=== PATIENT | female | born 1980 | race Caucasian/White ===

== ENCOUNTER → 2017-11-22 15:43 | Outpatient (CLI) | payer OTHER, SELFPAY ==
[2017-11-27 09:48] LABS: HPV Reflexed? NOT INDICATED
== END ==
PROVIDERS: Visit Provider Obstetrics & Gynecology
DX: Z12.4 Encounter for screening for malignant neoplasm of cervix (principal)
CPT/HCPCS: 88175; G0145

== ENCOUNTER → 2020-03-01 14:36 | Outpatient (CLI) | payer OTHER, SELFPAY ==
[2020-03-04 22:06] LABS: HPV Reflexed? NOT INDICATED
== END ==
PROVIDERS: Visit Provider Obstetrics & Gynecology
DX: Z12.4 Encounter for screening for malignant neoplasm of cervix (principal)
CPT/HCPCS: 88175; G0145

== ENCOUNTER 2021-07-06 11:04 | Outpatient (CLI) | payer OTHER, SELFPAY ==
--- NOTE | 2021-07-06 11:06 | BI_ITS ---
MAMMOGRAPHY - BILATERAL SCREENING REASON FOR EXAM: Female, 41 years old. Routine annual screening examination. PERTINENT HISTORY: Non-contributory. TECHNIQUE: Digital bilateral breast yudith (3D mammographic acquisition) in the CC and MLO projections. 2-D mediolateral oblique (MLO) and craniocaudad (CC) views of both breasts were obtained. CAD: Full Field Digital Mammography with Computer Added Detection was performed. COMPARISON: None. Baseline examination. FINDINGS: Breast Composition: The breasts are heterogeneously dense, which may obscure small masses. There are no dominant masses or suspicious calcifications. Small benign-appearing bilateral axillary lymph nodes. No other significant abnormalities are identified. BI/SCRN MAMM (CAD)W/YUDITH BILAT IMPRESSION: Negative screening mammogram. Yearly followup mammogram recommended. (A) ASSESSMENT CATEGORY: BIRADS Category 2: Benign. A letter regarding these results will be sent to the patient by the facility within 30 days. Approximately 10% of breast cancers are not detected by mammography. A normal mammogram should not delay biopsy of a clinically suspicious abnormality. [id number] Electronically Signed: Young Dukes MD at 13:05 EDT ,
== END 2021-07-06 23:59 | disposition home or self-care (01) ==
LOC: OPBI 11:04
PROVIDERS: Visit Provider Obstetrics & Gynecology
DX: Z12.31 Encounter for screening mammogram for malignant neoplasm of breast (principal)
CPT/HCPCS: 77063; 77067

== ENCOUNTER → 2022-12-22 | Outpatient (CLI) | payer OTHER, SELFPAY ==
--- NOTE | 2022-12-22 14:46 | BI_ITS ---
MAMMOGRAPHY - BILATERAL SCREENING REASON FOR EXAM: Female, 42 years old. Routine annual screening examination. PERTINENT HISTORY: Non-contributory. TECHNIQUE: Digital bilateral breast yudith (3D mammographic acquisition) in the CC and MLO projections. 2-D mediolateral oblique (MLO) and craniocaudad (CC) views of both breasts were obtained. CAD: Full Field Digital Mammography with Computer Added Detection was performed. COMPARISON: Comparison is made with prior study dated July 06, 2021. FINDINGS: Breast Composition: The breasts are heterogeneously dense, which may obscure small masses. There are no dominant masses or suspicious calcifications. Stable small benign-appearing bilateral axillary lymph nodes. No other significant abnormalities are identified. There has been no significant change since the prior study. BI/SCRN MAMM (CAD)W/YUDITH BILAT IMPRESSION: Stable bilateral screening mammogram. Yearly follow-up mammogram recommended. (A) ASSESSMENT CATEGORY: BIRADS Category 2: Benign. A letter regarding these results will be sent to the patient by the facility within 30 days. Approximately 10% of breast cancers are not detected by mammography. A normal mammogram should not delay biopsy of a clinically suspicious abnormality. [id number] Electronically Signed: Young Dukes MD at 8:36 EDT ,
== END | disposition home or self-care (01) ==
LOC: OPBI 14:45
PROVIDERS: PCP Internal Medicine; Referring Provider Internal Medicine; Visit Provider Internal Medicine
DX: Z12.31 Encounter for screening mammogram for malignant neoplasm of breast (principal)
CPT/HCPCS: 77063; 77067

== ENCOUNTER → 2024-01-17 | Outpatient (CLI) | payer OTHER, SELFPAY ==
[2024-01-17 12:26] LABS: Absolute Lymphocyte Count 0.79 X10^3/uL (0.83-4.51); Absolute Neutrophil Count 2.9 X10^3/uL (2.0-7.7); Basophil# 0.03 X10^3/uL; Basophil% 0.7 % (0-1); Eosinophil# 0.16 X10^3/uL; Eosinophils% 3.7 % (0-5); Hematocrit 41.1 % (37-47); Hemoglobin 13.4 g/dL (12.0-15.0); Lymphocyte # 0.79 X10^3/ul (0.83-4.51); Mean Corp Hgb Conc 32.6 g/dL (32-36); Mean Corpuscular Hgb 29.5 pg (27.0-32.0); Mean Corpuscular Volume 90.3 fL (81-99); Mean Platelet Vol. 9.9 fl (6.2-12.0); Monocyte# 0.47 X10^3/uL; Monocyte% 10.7 % (0-10); NRBC Flagged by Analyzer 0 % (0-5); Neutrophil # 2.91 X10^3/uL (2.7-7.7); Neutrophil % 66.4 % (47-70); Platelet Count 225 K/mm3 (150-450); RBC Distribution Width CV 11.9 % (11.6-14.6); RBC Distribution Width SD 39.5 fl (35.1-43.9); Red Blood Count 4.55 M/mm3 (4.2-5.4); White Blood Count 4.4 K/mm3 (4.4-11.0)
[2024-01-17 12:56] LABS: ALB/GLOB Ratio 1.1 RATIO (0.9-2.4); AST(SGOT) 19 U/L (15-37); Alanine Aminotransfer ALT/SGPT 21 U/L (13-56); Albumin, Serum 3.7 g/dL (3.2-5.0); Alkaline Phosphatase 64 U/L (45-117); Anion Gap 5 (5-15); BUN 10 mg/dL (7-18); BUN/Creat Ratio 14.5 RATIO (10-20); Chloride 106 mmol/L (98-107); Cholesterol 200 mg/dL (200); Creatinine, Serum 0.69 mg/dL (0.55-1.02); EST Glomerular Filtration Rate 98 mL/min (>60); Est Glom Filt Rate - Afr Amer 119 mL/min (>60); Globulin 3.5 g/dL (2.2-4.2); Glucose 96 mg/dL (74-106); High Density Lipoprotein 97 mg/dL; Potassium 4.3 mmol/L (3.5-5.1); Protein, Total 7.2 g/dL (6.4-8.2); Sodium Level 139 mmol/L (136-145); Triglycerides 67 mg/dL; Very Low Density Lipoprotein 13 mg/dL (5-40)
== END | disposition home or self-care (01) ==
LOC: BIMLAB 09:25
PROVIDERS: PCP Internal Medicine; Referring Provider Internal Medicine; Visit Provider Internal Medicine
DX: Z00.00 Encounter for general adult medical examination without abnormal findings (principal); Z13.6 Encounter for screening for cardiovascular disorders; Z83.49 Family history of other endocrine, nutritional and metabolic diseases
CPT/HCPCS: 36415; 80053; 80061; 84443; 85025

== ENCOUNTER → 2024-02-12 | Outpatient (CLI) | payer OTHER, SELFPAY ==
--- NOTE | 2024-02-12 11:54 | BI_ITS ---
MAMMOGRAPHY - BILATERAL SCREENING REASON FOR EXAM: Female, 43 years old. Routine annual screening examination. PERTINENT HISTORY: Non-contributory. TECHNIQUE: Digital bilateral breast yudith (3D mammographic acquisition) in the CC and MLO projections. 2-D mediolateral oblique (MLO) and craniocaudad (CC) views of both breasts were obtained. CAD: Full Field Digital Mammography with Computer Added Detection was performed. COMPARISON: Comparison is made with prior study December 22, 2022 and July 06, 2021. FINDINGS: Breast Composition: The breasts are heterogeneously dense, which may obscure small masses. There are no dominant masses or suspicious calcifications. Stable small benign appearing bilateral axillary lymph nodes. No other significant abnormalities are identified. There has been no significant change since the prior study. BI/SCRN MAMM (CAD)W/YUDITH BILAT IMPRESSION: Stable bilateral screening mammogram. Yearly follow-up mammogram recommended. (A) ASSESSMENT CATEGORY: BIRADS Category 2: Benign. A letter regarding these results will be sent to the patient by the facility within 30 days. Approximately 10% of breast cancers are not detected by mammography. A normal mammogram should not delay biopsy of a clinically suspicious abnormality. [id number] Electronically Signed: Young Dukes MD at 13:42 EST ,
== END | disposition home or self-care (01) ==
LOC: OPBI 11:53
PROVIDERS: PCP Internal Medicine; Referring Provider Internal Medicine; Visit Provider Internal Medicine
DX: Z12.31 Encounter for screening mammogram for malignant neoplasm of breast (principal)
CPT/HCPCS: 77063; 77067

== ENCOUNTER → 2025-02-17 | Outpatient (CLI) | payer OTHER, SELFPAY ==
[2025-02-17 12:22] LABS: Hematocrit 40.5 % (37-47); Hemoglobin 13.9 g/dL (12.0-15.0); Immature Granulocytes Count 0.020 X10^3/uL (0.0-0.0); Mean Corp Hgb Conc 34.3 g/dL (32-36); Mean Corpuscular Volume 89.4 fL (81-99); Mean Platelet Vol. 9.8 fl (6.2-12.0); NRBC Flagged by Analyzer 0 % (0-5); Platelet Count 224 K/mm3 (150-450); RBC Distribution Width CV 12.4 % (11.6-14.6); RBC Distribution Width SD 40.1 fl (35.1-43.9); Red Blood Count 4.53 M/mm3 (4.2-5.4); White Blood Count 7.0 K/mm3 (4.4-11.0)
[2025-02-17 12:59] LABS: AST(SGOT) 29 U/L (<=31); Alanine Aminotransfer ALT/SGPT 25 U/L (<=34); Albumin, Serum 4.4 g/dL (3.5-5.0); Alkaline Phosphatase 58 U/L (35-104); Anion Gap 12 (5-15); BUN 13 mg/dL (4-19); BUN/Creat Ratio 21.6 RATIO (10-20); Calcium,Total 9.3 mg/dL (7.6-11.0); Carbon Dioxide 22.3 mmol/L (21.0-32.0); Chloride 103 mmol/L (98-108); Globulin 2.9 g/dL (2.2-4.2); Glucose 91 mg/dL (70-99); Potassium 4.3 mmol/L (3.3-5.1)
[2025-02-19 13:08] LABS: HPV APTIMA, High Risk Negative (Negative)
== END | disposition home or self-care (01) ==
LOC: MTLAB 09:43
PROVIDERS: PCP Internal Medicine; Referring Provider Internal Medicine; Visit Provider Internal Medicine
DX: Z00.00 Encounter for general adult medical examination without abnormal findings (principal); Z83.49 Family history of other endocrine, nutritional and metabolic diseases; Z13.1 Encounter for screening for diabetes mellitus; Z12.4 Encounter for screening for malignant neoplasm of cervix
CPT/HCPCS: 36415; 80053; 83036; 84443; 85025; 87624; 88175; G0145

== ENCOUNTER → 2025-03-17 | Outpatient (CLI) | payer OTHER, SELFPAY ==
--- NOTE | 2025-03-17 16:15 | BI_ITS ---
EXAM: SCRN MAMM (CAD)W/YUDITH BILAT DATE: 03/17/2025 CLINICAL HISTORY: F, Age 44 y/o , BREAST CANCER SCREENING No family history. TECHNIQUE: Procedure Code: [id number] Modality: MG Procedure: SCRN MAMM (CAD)W/YUDITH BILAT COMPARISON: Prior exam(s) dated February 12, 2024.. FINDINGS: TISSUE DENSITY: The breasts are heterogeneously dense, which may obscure small masses. Bilateral Breast Mammographic Findings: I suspect a 1.2 cm 1.4 cm nodular density in the deep upper lateral aspect of the right breast. Compression spot views and 90 degree lateral view recommended for further evaluation. Ultrasound may be necessary as well. BI/SCRN MAMM (CAD)W/YUDITH BILAT IMPRESSION: Questionable 1.2 cm 1.4 cm nodular density in the deep upper lateral aspect of the right breast as described. The patient will be recalled for additional views. Ultrasound may be necessary for further foll ow-up as well. OVERALL FINAL ASSESSMENT BI-RADS 0: INCOMPLETE - NEED ADDITIONAL IMAGING EVALUATION. RECOMMENDATION: Additional Views obtained/call backs Additional Recommendation none A letter with findings and recommendations will be mailed to the patient. Reading Location: [id number]
--- OUTSIDE RECORDS SUMMARY | 2025-03-17 20:35 | XMS RPT_ITS | CCD ---
Author Organization [facility] Care Team Providers Care Legal Assistant Name Role Phone Almont, Sunday Unavailable Unavailable Almont, Sunday Unavailable Unavailable Mildred Wolfe Unavailable Unavailable Itasca, Nataliia Attending Unavailable Itasca, Nataliia Referring Unavailable Itasca, Nataliia Primary Care Unavailable Hemanth, Nataliia Attending Unavailable [place]asca, Nataliia Referring Unavailable Hemanth, Nataliia Primary Care Unavailable Hemanth, Nataliia Attending Unavailable Hemanth, Nataliia Referring Unavailable Hemanth, Nataliia Primary Care Unavailable Allergies Allergy Classification Reported Allergen(s) Allergy Type Date of Onset Reaction(s) Facility (1 source) No Known Medication Allergies; Translations: [No Known Medication Allergies] Propensity to adverse reactions to drug (disorder) [facility] Repository Problems Problem Classification Problem Date Documented Da te Episodic/Chronic Immunizations and screening for infectious disease (1 source) Encounter for immunization; Translations: [Encounter for immunization] Onset: 01-23-2024 Episodic Other screening for suspected conditions (not mental disorders or infectious disease) (2 sources) Encounter for screening mammogram for malignant neoplasm of breast; Translations: [Encounter for other screening for malignant neoplasm of breast] Onset: 01-23-2024 Episodic Results Test Name Value Interpretation Reference Range Facility SCRN MAMM (CAD)W/YUDITH BILNeida n 02-12-2024 SCRN MAMM (CAD)W/YUDITH [facility] Imaging Services [address] [place] [address] SCRN MAMM (CAD)W/YUDITH BILAT MR#: [id number] Acct: [id number] Name: SOFY WANG Rep #: [id number] : 1980 F 43 From: Young caldera MD PCP: Dr. Nataliia Saxena MD Status: REG [facility] Study: SCRN MAMM (CAD)W/YUDITH BILAT Date of Exam: 01/31 05/26 Exam# [id number] Ordering [place]: [place] [id number] MAMMOGRAPHY - BILATERAL SCREENING REASON FOR EXAM: Female, 43 years old. Routine annual screening examination. PERTINENT HISTORY: Non-contributory. TECHNIQUE: Digital bilateral breast yudith (3D mammographic acquisition) in the CC and MLO projections. 2-D mediolateral oblique (MLO) and craniocaudad (CC) views of both breasts were obtained. CAD: Full Field Digital Mammography with Computer Added Detection was performed. COMPARISON: Comparison is made with prior study December 22, 2022 and July 06, 2021. FINDINGS: Breast Composition: The breasts are heterogeneously dense, which may obscure small masses. There are no dominant masses or suspicious calcifications. Stable small benign appearing bilateral axillary lymph nodes. No other significant abnormalities are identified. There has been no significant change since the prior study. BI/SCRN MAMM (CAD)W/YUDITH BILAT IMPRESSION: Stable bilateral screening mammogram. Yearly follow-up mammogram recommended. (A) ASSESSMENT CATEGORY: BIRADS Category 2: Benign. A letter regarding these results will be sent to the patient by the facility within 30 days. Approximately 10% of breast cancers are not detected by mammography. A normal mammogram should not delay biopsy of a clinically suspicious abnormality. [id number] Electronically Signed: Young Dukes MD at 13:42 EST , CC: Dr. Nataliia Saxena MD Corn Chip Maker: Signed Normal [facility] Internal Medicine Office Vis millernatalia 01-22-2024 Internal Medicine Office Visit [facility] [address] [place] [address] OFFICE VISIT Date of Service: 01/23/24 MR#: [id number] Acct: [id number] Name: SOFY WANG Rep #: [id number] : 1980 Provider: Dr. Nataliia lemus MD Age/Sex: 43/F Location: [facility] Status: Signed Intake Vital Signs 12/07/22 08:04 01/23/24 07:57 Height 5 ft 4 in 5 ft 4 in Weight: 160 lb BMI 27.4 BP 136/80 H Blood Pressure Location Lt brachial Position Sitting Respiration 16 Pulse 80 Pulse Source Monitor Temp 97.0 F L Temp Source Temporal Pulse Oximetry (%) 99 Oxygen Delivery Method room air Intake Visit Reasons: YEARLY Chief Complaint: yearly Keno Attendant Required: No Accompanied by: Self Is patient in pain?: No Allergies No Known Allergies Allergy (Unverified 01/23/24 07:56) Medications ???Medication ???Instructions ???Recorded ???Confirmed ???Type Lactobacillus rhamnosus GG 10 1 cap PO DAILY 12/07/22 01/23/24 History billion cell capsule (Culturelle) PFSH Medical History Asthma Hypertension Surgical History delivery delivered Family History Mother CVA (cerebral vascular accident) Graves disease Father Kidney disease Heart disease Hypertension Sister Blood clot in vein Social History (Updated 01/23/24 @ 08:[address] Nataliia Saxena MD) adopted: No household members: spouse and children number of children: 3 current occupational status: employed current occupation: [employer] pets and animals: Yes pets and animals: cat(s) and dog(s) Smoking Status: Former smoker quit date: 04/02/99 pack-years: 2 Tobacco: How many years used: 2 Electronic Cigarette Use: with nicotine how long ago did patient quit smoking: over 20 years ago quit status: has quit before alcohol intake: current alcohol intake frequency: a few times a week substance use type: does not use caffeine: Yes (2-3) Type: coffee frequency: 3-4 times per week seatbelt use: always do you feel safe at home: Yes HPI HPI Chief Complaint: yearly Details: SOFY WANG, is a 43 F who presents to the office today for a well visit. She is due for some routine blood work and screening. She does want her flu shot today. She doesn't smoke and doesn't take any medications. She has no questions or concerns at this time. Allergies: NKDA Medications reviewed: Yes Sofy likes to exercises by doing yoga and cardio. They watch their diet for sodium, low fat, and low cholesterol some of the time. List of current specialists seen: None End of life planning discussed including patient's advanced directive wishes: Discussed, patient has one in place I am willing to follow Sofy's advanced directives PHQ-2/Depression screen They in the past two weeks denies having felt down, depressed, hopeless or with little interest or pleasure in doing things. Hearing evaluation: Normal ROS Const Constitutional: Positive for weight change (11 pound weight gain); No body ache, chills, excessive sweating, fatigue, fever(s), frequent falls, headache(s), snoring, weakness or change in appetite Eyes Eyes: No blurry vision, change in vision, eye pain or Light sensitivity ENT ENT: Positive for nasal congestion (allergies); No abnormal hearing, ear or mastoid pain, tinnitus, headache(s), neck pain or sore throat Resp Respiratory: No cough, shortness of breath, snoring or wheezing Cardio Cardiology: No chest pain at rest, chest pain with exertion, excessive sweating, dyspnea on exertion, lightheadedness, orthopnea or palpitations Gastro GI: No abdominal pain, change in bowel habits, constipation, cramping, diarrhea, nausea/dyspepsia or vomiting Genitourinary-Female: No difficulty urinating, burning urination, painful urination, urinary incontinence, urinary frequency or abnormal periods Musc Musculoskeletal: No abnormal gait, joint pain, back pain, limited range of motion, muscle weakness, neck pain, numbness or tingling Skin Skin: No dry skin, redness, lesions, itchy eyes, rash or wounds Neuro Neurology: No abnormal gait, abnormal hearing, dizziness, weakness, frequent falls, headache(s), memory loss, numbness, tingling or fainting Psych Psychiatric: No anxiety, No change in appetite, No depression, No memory loss and No Thoughts of harming yourself/Others Endo Endocrine: Positive for weight change (11 pound weight gain); No cold intolerance, excessive sweating, fatigue, flushing, heat intolerance, increased thirst/drinking or increased hunger Aller/Imm Allergy/Immunologic: No itchy eyes, seasonal allergy symptoms, hives or wheezing Timothy/Ly (more content not included)... Normal [facility] CBC W/Diff, Automatedon 12-31 Absolute Lymph 0.79 X10 3/uL Low 0.83-4.51 [facility] Comment on above: Performed By: #### L 500.4050, L500.4100, L100.0100, L501.9520 #### [facility] [address] [place], [address] Absolute Neut 2.9 X10 3/uL Normal 2.0-7.7 [facility] Comment on above: Performed By: #### L 500.4050, L500.4100, L100.0100, L501.9520 #### [facility] [address] [place], [address] Basophils/100 WBC (Bld) 0.7 % Normal 0-1 [facility] Comment on above: Performed By: #### L 500.4050, L500.4100, L100.0100, L501.9520 #### [facility] [address] [place], [address] Eosinophils/100 WBC (Bld) 3.7 % Normal 0-5 [facility] Comment on above: Performed By: #### L 500.4050, L500.4100, L100.0100, L501.9520 #### [facility] [address] [place], [address] Erythrocyte distribution width (RBC) [Ratio] 11.9 % Normal 11.6-14.6 [facility] Comment on above: Performed By: #### L 500.4050, L500.4100, L100.0100, L501.9520 #### [facility] [address] [place], [address] Hematocrit (Bld) [Volume fraction] 41.1 % Normal 37-47 [facility] Comment on above: Performed By: #### L 500.4050, L500.4100, L100.0100, L501.9520 #### [facility] [address] [place], [address] Hemoglobin (Bld) [Mass/Vol] 13.4 g/dL Normal 12.0-15.0 [facility] Comment on above: Performed By: #### L 500.4050, L500.4100, L100.0100, L501.9520 #### [facility] [address] [place], [address] IG% 0.500 Normal 0.0-0.9 [facility] Comment on above: Result Comment: IG% - Immature Granulocytes (promyelocytes, myelocytes and metamyelocytes) > 1% indicates that a LEFT SHIFT is Present. Performed By: #### L 500.4050, L500.4100, L100.0100, L501.9520 #### [facility] [address] [place], [address] Lymphocytes/100 WBC (Bld) 18.0 % Low 19-41 [facility] Comment on above: Performed By: #### L 500.4050, L500.4100, L100.0100, L501.9520 #### [facility] [address] [place], [address] MCH (RBC) [Entitic mass] 29.5 pg Normal 27.0-32.0 [facility] Comment on above: Performed By: #### L 500.4050, L500.4100, L100.0100, L501.9520 #### [facility] [address] [place], [address] MCHC (RBC) [Mass/Vol] 32.6 g/dL Normal 32-36 [facility] Comment on above: Performed By: #### L 500.4050, L500.4100, L100.0100, L501.9520 #### [facility] [address] [place], [address] MCV (RBC) [Entitic vol] 90.3 fL Normal 81-99 [facility] Comment on above: Performed By: #### L 500.4050, L500.4100, L100.0100, L501.9520 #### [facility] [address] [place], [address] Monocytes/100 WBC (Bld) 10.7 % High 0-10 [facility] Comment on above: Performed By: #### L 500.4050, L500.4100, L100.0100, L501.9520 #### [facility] [address] [place], [address] Neutrophils/100 WBC (Bld) 66.4 % Normal 47-70 [facility] Comment on above: Performed By: #### L 500.4050, L500.4100, L100.0100, L501.9520 #### [facility] [address] [place], [address] Nucleated RBC (Bld) [#/Vol] 0 10*3/uL Normal 0-5 [facility] Comment on above: Performed By: #### L 500.4050, L500.4100, L100.0100, L501.9520 #### [facility] [address] [place], [address] Platelet mean volume (Bld) [Entitic vol] 9.9 fL Normal 6.2-12.0 [facility] Comment on above: Performed By: #### L 500.4050, L500.4100, L100.0100, L501.9520 #### [facility] [address] [place], [address] Platelets (Bld) [#/Vol] 225 10*3/uL Normal 150-450 [facility] Comment on above: Performed By: #### L 500.4050, L500.4100, L100.0100, L501.9520 #### [facility] [address] [place], [address] RBC (Bld) [#/Vol] 4.55 10*6/uL Normal 4.2-5.4 [facility] Comment on above: Performed By: #### L 500.4050, L500.4100, L100.0100, L501.9520 #### [facility] [address] [place], [address] RDW SD 39.5 fl Normal 35.1-43.9 [facility] Comment on above: Performed By: #### L 500.4050, L500.4100, L100.0100, L501.9520 #### [facility] [address] [place], [address] WBC (Bld) [#/Vol] 4.4 10*3/uL Normal 4.4-11.0 [facility] Comment on above: Performed By: #### L 500.4050, L500.4100, L100.0100, L501.9520 #### [facility] [address] [place], [address] Comprehensive Metabolic Prof ilolinda 01-17-2024 Albumin [Mass/Vol] 3.7 g/dL Normal 3.2-5.0 [facility] Comment on above: Performed By: #### L 500.4050, L500.4100, L100.0100, L501.9520 #### [facility] [address] [place], [address] Albumin/Globulin [Mass ratio] 1.1 {ratio} Normal 0.9-2.4 [facility] Comment on above: Performed By: #### L 500.4050, L500.4100, L100.0100, L501.9520 #### [facility] [address] [place], [address] ALK P 64 U/L Normal 45-117 [facility] Comment on above: Performed By: #### L 500.4050, L500.4100, L100.0100, L501.9520 #### [facility] [address] [place], [address] ALT [Catalytic activity/Vol] 21 U/L Normal 13-56 [facility] Comment on above: Performed By: #### L 500.4050, L500.4100, L100.0100, L501.9520 #### [facility] [address] [place], [address] AST [Catalytic activity/Vol] 19 U/L Normal 15-37 [facility] Comment on above: Performed By: #### L 500.4050, L500.4100, L100.0100, L501.9520 #### [facility] [address] [place], [address] Bilirubin [Mass/Vol] 0.60 mg/dL Normal 0.20-1.00 [facility] Comment on above: Result Comment: For patients on eltrombopag therapy, use of Dim[place] TBIL is not recommended. Performed By: #### L 500.4050, L500.4100, L100.0100, L501.9520 #### [facility] [address] [place], [address] BUN/CRE 14.5 RATIO Normal 10-20 [facility] Comment on above: Performed By: #### L 500.4050, L500.4100, L100.0100, L501.9520 #### [facility] [address] [place], [address] CA,Total 9.0 mg/dL Normal 8.5-10.1 [facility] Comment on above: Performed By: #### L 500.4050, L500.4100, L100.0100, L501.9520 #### [facility] [address] [place], [address] Chloride [Moles/Vol] 106 mmol/L Normal 98-107 [facility] Comment on above: Performed By: #### L 500.4050, L500.4100, L100.0100, L501.9520 #### [facility] [address] [place], [address] CO2 [Moles/Vol] 27.0 mmol/L Normal 21.0-32.0 [facility] Comment on above: Performed By: #### L 500.4050, L500.4100, L100.0100, L501.9520 #### [facility] [address] [place], [address] Creatinine [Mass/Vol] 0.69 mg/dL Normal 0.55-1.02 [facility] Comment on above: Result Comment: The validity of the calculated GFR GFRAA in patients over 70 years has not been determined. Clinical correlation is essential. Performed By: #### L 500.4050, L500.4100, L100.0100, L501.9520 #### [facility] [address] [place], [address] EST GFR - AA 119 mL/min Normal >60 [facility] Comment on above: Result Comment: Afri can Cambodian GFR Calc Performed By: #### L 500.4050, L500.4100, L100.0100, L501.9520 #### [facility] [address] [place], [address] GAP 5 Normal 5-15 [facility] Comment on above: Performed By: #### L 500.4050, L500.4100, L100.0100, L501.9520 #### [facility] [address] [place], [address] GFR/1.73 sq M.predicted among non-blacks MDRD (S/P/Bld) [Vol rate/Area] 98 mL/min/{1.73_m2} Normal >60 [facility] Comment on above: Result Comment: Non- GFR Calc Performed By: #### L 500.4050, L500.4100, L100.0100, L501.9520 #### [facility] [address] [place], [address] Globulin (S) [Mass/Vol] 3.5 g/dL Normal 2.2-4.2 [facility] Comment on above: Performed By: #### L 500.4050, L500.4100, L100.0100, L501.9520 #### [facility] [address] [place], [address] Glucose [Mass/Vol] 96 mg/dL Normal 74-106 [facility] Comment on above: Performed By: #### L 500.4050, L500.4100, L100.0100, L501.9520 #### [facility] [address] [place], [address] Potassium [Moles/Vol] 4.3 mmol/L Normal 3.5-5.1 [facility] Comment on above: Performed By: #### L 500.4050, L500.4100, L100.0100, L501.9520 #### [facility] [address] [place], [address] Sodium [Moles/Vol] 139 mmol/L Normal 136-145 [facility] Comment on above: Performed By: #### L 500.4050, L500.4100, L100.0100, L501.9520 #### [facility] [address] [place], [address] T PROT 7.2 g/dL Normal 6.4-8.2 [facility] Comment on above: Performed By: #### L 500.4050, L500.4100, L100.0100, L501.9520 #### [facility] [address] [place], [address] Urea nitrogen [Mass/Vol] 10 mg/dL Normal 7-18 [facility] Comment on above: Performed By: #### L 500.4050, L500.4100, L100.0100, L501.9520 #### [facility] [address] [place], [address] Lipid Profileon 01-17-2024 Cholesterol [Mass/Vol] 200 mg/dL Normal 200 [facility] Comment on above: Result Comment: <200 mg/dL Desirable 200-240 mg/dL Borderline >240 mg/dL High Risk Performed By: #### L 500.4050, L500.4100, L100.0100, L501.9520 #### [facility] [address] [place], [address] Cholesterol in HDL [Mass/Vol] 97 mg/dL Normal [facility] Comment on above: Result Comment: The drugs N-Acetylcysteine and Metamizole may falsely depress this assay. Reference Range HDL <40 mg/dL Low HDL Cholesterol HDL >or= 60 mg/dL High HDL Cholesterol Performed By: #### L 500.4050, L500.4100, L100.0100, L501.9520 #### [facility] [address] [place], [address] Cholesterol in LDL [Mass/Vol] 90 mg/dL Normal 0-130 [facility] Comment on above: Performed By: #### L 500.4050, L500.4100, L100.0100, L501.9520 #### [facility] [address] [place], [address] Cholesterol in VLDL [Mass/Vol] 13 mg/dL Normal 5-40 [facility] Comment on above: Performed By: #### L 500.4050, L500.4100, L100.0100, L501.9520 #### [facility] [address] [place], [address] Triglyceride [Mass/Vol] 67 mg/dL Normal [facility] Comment on above: Result Comment: The drugs N-Acetylcysteine and Metamizole may falsely depress this assay. Serum Triglycerides Reference Interval Normal <150 mg/dL Borderline high 150 - 199 mg/dL High 200 - 499 mg/dL Very High > or = 500 mg/dL Performed By: #### L 500.4050, L500.4100, L100.0100, L501.9520 #### [facility] [address] [place], [address] Thyroid Stim Hormone (TSH)on 01-17-2024 TSH 1.300 uIU/mL Normal 0.358-3.740 [facility] Comment on above: Performed By: #### L 500.4050, L500.4100, L100.0100, L501.9520 #### [facility] [address] [place], [address] KNEE CMPLT, 4 OR MORE VIEWSo n 10-29-2019 KNEE CMPLT, 4 OR MORE VIEWS Patient Name: SOFY WANG STUDY: KNEE; COMPLT, 4 OR MORE VIEWS; Right; 10/29/2019 5:01 pm INDICATION: injury. COMPARISON: None. ACCESSION NUMBER(S): [id number] ORDERING CLINICIAN: JESSICA FLANAGAN FINDINGS: Four views right knee: There is no fracture, dislocation or joint effusion IMPRESSION: No acute bony abnormality right knee. Electronically signed by: ALINE SALAS MD [facility] Provider Note - ED v2on 10-01 Provider Note - ED v2 Provider Note - ED v2: Chart Review: ED NOTES ED NOTES: ====HPI==== Patient is a 39 yo female who presents to the ED for chief complaint of right knee pain. Patient states that a goat charged at her right knee yesterday evening. This caused her to fall and twist her right knee. She states that she laid on the ground for about 15 minutes secondary to pain. She denies hitting her head or loss of consciousness. She denies any other injuries. She reports that her right knee is swollen and painful. She states that she felt something pop in her right knee. She is having difficulty ambulating onto her right leg. She has pain especially when walking and extending her right leg. Character: Severity: 5/10 Exacerbated by: walking and extending Improved by: rest ====Review of Systems==== 10 point system review is negative except for those specifically mentioned in history of present illness ====Physical Exam==== Constitutional/General: Alert and oriented x3, well appearing, nontoxic, and in NAD. Head: Normocephalic and atraumatic. Eyes: PERRL, EOMI, conjunctive normal, sclera nonicteric, subconjunctival layer is pink. Neck: Supple, full ROM, non tender to palpation in the midline, no stridor, no crepitus, no meningeal signs. Trachea at midline. Respiratory: Lungs clear to auscultation bilaterally, no wheezes, rales, or rhonchi, not in respiratory distress. Cardiovascular: Regular rate, regular rhythm, no murmurs, gallops, or rubs, 2+ distal pulses. Chest: normal chest wall movement Musculoskeletal: Right knee with tenderness to the anterior and posterior knee. No appreciated lateral or medial laxity. Minimal swelling. Moves all extremities x4, warm and well perfused, no clubbing, cyanosis, or edema, cap refill <3 seconds Integument: Skin warm and dry, no rashes. Lymphatic: No lymphadenopathy noted. Neurologic: No focal deficits Psychiatric: Normal affect. ====ED Course and Medical Decision Making==== See MDM section for review of findings & plan of care. Portions of this note were dictated by speech recognition. An attempt at proof reading was made to minimize errors. Minor errors in irradiated fuel handler may be present. Please call if questions.. HISTORY OF PRESENTING ILLNESS SOFY is a 39 year old Female and was seen by me at 29-Oct-2019 16:18 for a chief complaint of knee pain/injury (pt sts last night a goat charged her and ran into her right knee causing right knee to hyperextend. pt sts she felt a pop, c/o pain especially when walking and extending right leg)(1). Triage Information: Most recent Vital Sign Value Date Temp (F): 98.3 10-29-2019 16:17 Temp (C): 36.8 10-29-2019 16:17 Heart Rate (beats/min): 86 10-29-2019 16:17 Respirations (breaths/min): 16 10-29-2019 16:17 SpO2 (%): 98 10-29-2019 16:17 BP Systolic (mm Hg): 143 10-29-2019 16:17 BP Diastolic (mm Hg): 80 10-29-2019 16:17 PAST MEDICAL HISTORY ATTESTATION: I have reviewed and confirmed nurse's/medic's notes for patient's medications, allergies, medical history, and surgical history ALLERGIES/INTOLERANCES: No Known Allergies HEALTH HISTORY: No documented data. 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 Patient will be discharged home with recommended f/u with PCP and return immediately for any new or worsening symptoms CLINICAL IMPRESSION Diagnosis/Annotation: ED Dx Name:Right knee sprain Code:S83.91XA Dispostion: discharged Type: home ATTESTATION CRITICAL CARE TIME Is this a critically ill patient: no Electronic Signatures: Jessica Flanagan (PAC) (Signed 29-Oct-2019 18:05) Authored: Provider Note - ED v2 Last Updated: 29-Oct-2019 18:05 by Jessica Flanagan (PAC) References: 1. Data Referenced From Triage - ED 29-Oct-2019 16:17 [facility] Risk Screen - Adult Emergenc yon 10-29-2019 Risk Screen - Adult Emergency Preferred Language: Preferred Language: Preferred Language for Discussing Health Care (patient/designee)Kacie mcpherson Advanced Directives: Advance Directive/DNRno Advance Directive Information Givenpatient/family declined Family Violence Adult: Abuse Screen: Are you or have you been threatened or abused physically, emotionally, or sexually by anyoneno Learning Assessment (Patient): Learning Assessment (Patient): Patient is Able to be Assessed for Learningyes Factors Influencing Readiness to Learnpain Factors that Impact Ability to Learnnone Devices/Methods Used to Communicatenone Learning Preferencesaudio Cultural Considerationsnone Developmental Considerationsnone Confucianism Considerationsnone Learning Assessment (Other Learner): Learning Assessment (Other Learner): Other learner availableno Pressure Injury/TB/Substance: Pressure Injury: Pressure Injury Present on Admissionno Do you have a coughno Substance Use Current or Former Historynever: Cigarette/Tobacco, e-Cigarette/Vaping, Alcohol, Street Drugs Admission Risk Screen: Significant IndicatorsComplete CAGE: CAGE: Is this an injured patient at a Trauma Center ([facility]/[place]/[facility]/[place]): no Electronic Signatures: Luli Oconnor (ANDREA) (Signed 29-Oct-2019 16:21) Authored: Preferred Language, Advanced Directives, Family Violence Adult, Learning Assessment (Patient), Learning Assessment (Other Learner), Pressure Injury/TB/Substance, CAGE Last Updated: 29-Oct-2019 16:21 by Luli Oconnor (ANDREA) [facility] Triage - EDon 10-29-2019 Triage - ED Quick Triage: Are You no Have You Given In The Last 6 Weeksno Are You Currently Breastfeedingno The patient and/or guardian verbally acknowledges placement for services into the following (when Urgent Care Service hours are operating):emergency department Chart Review: CHIEF COMPLAINT SOFY WANG is a Female patient with a chief complaint of knee pain/injury (pt sts last night a goat charged her and ran into her right knee causing right knee to hyperextend. pt sts she felt a pop, c/o pain especially when walking and extending right leg). Triage Date/Time: 29-Oct-2019 16:17 Pain Rating (0-10): 8 = Severe Vital Signs: Temperature: 98.3F ( 36.8C) taken oral Blood Pressure: 143/80 Mean: Heart Rate: 86 Respiratory Rate: 16 Pulse Oximetry: 98% on room air, no respiratory support. Height: 5 feet 4.00 inches. 162.5 CM Weight: 130.2 pounds. Calculated 59.1 kg. 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 Symptoms Are POSITIVE For: difficulty walking and decreased ROM. Symptoms Are Negative For: abrasion, bleeding, bruising, deformity, difficulty bending, numbness, pain (describe) and tingling. Risk Screens Suicide Risk Screen In the Past Month: Have you wished you were or wished you could go to sleep and not wake up no In the Past Month: Have you had any actual thoughts of killing yourself no In Your Lifetime: Have you ever done anything, started to do anything, or prepared to do anything to end your life no Dallas Fall Scale Screening Has the patient fallen before (or is the patient in the ED as a result of a fall) has had a fall Does the patient have an impaired gait does not have impaired gait Is the patient cognitively impaired not cognitively impaired Dallas Fall Scale History of falling (immediate or previous) yes (25) Secondary Diagnosis no (0) Intravenous Therapy/ Heparin/Saline Lock no (0 Gait/Transferring normal/bedrest/wheelcha ir (0) Ambulatory Aids none/bedrest/nurse assist (0) Mental Status oriented to own ability (0) Dallas Fall Risk Score: 25 Interventions: Dallas Fall Interventions: LOW INTERVENTIONS: *patient oriented to surroundings and call system, * patient/family falls education completed and documented, *patients fall status communicated during bedside handoff, *whiteboard updated, *mode of toileting discussed with patient, *bed in low position with brakes locked, *call light in reach, * non-skid footwear and MODERATE INTERVENTIONS: *Low Interventions Plus: * falls risk band/sticker applied to patient, *yellow non-skid footwear, *instruct to call for assistance before getting out of bed, *bed/chair/bedside commode/toilet alarms, *sensory devices/ambulatory aides available and in reach, *medications reviewed for potential side effects and care planning. PAIN Pain Scale Used: DYLON Pain Rating (0-10): 8 = Severe PRIMARY ASSESSMENT SOFY WANG's primary assessment is Within Defined Limits. The airway is open and patent. Breathing spontaneous and unlabored with clear breath sounds bilaterally. Circulation is normal with good peripheral pulses. Skin is warm and dry and color is normal for race. PAST MEDICAL HISTORY Immunization History: Last Known Tetanus Immunization: Unknown TRAVEL HISTORY Travel History Coronavirus Screening: no exposure or symptoms Travel Exposure History: NO travel to International locations in the past 30 days Past Medical History: Past Medical History Reviewedyes Section: Past Surgical History, Active Electronic Signatures: Luli Oconnor (RN) (Signed 29-Oct-2019 16:20) Authored: Triage, Past Medical History Last Updated: 29-Oct-2019 16:20 by Luli Oconnor (ANDREA) [facility] Urineon 02-12-2017 C Urine Final Report: >100,0 00 cfu/ml Staphylococcus saprophyticusORGANISM: StasapSUSCEPTIBILITY RESULTSAntibiotic RAMIRO Dilutn RAMIRO InterpORGANISM: StasapAmox/Cla : <=4/2 RAmp : <=2 RAmp/Sul : <=8/4 RCeftri : 32 RCipro : <=1 SGent : <=4 SLevo : <=1 SNitro : <=32 SOx : 1 RPen : 0.25 RRif : <=1 STetra : >8 RSXT : <=0.5/9.5 SVanc : 1 [facility] Comment on above: Performed By: #### [id number] ####PAULA Microbiology [address] [place] [address] U BhCG Qlton 02-10-2017 HCG.beta subunit Qn Negative Normal Neg [facility] Comment on above: Performed By: #### 2 [id number] ####PAULA Urinalysis Manual [address] [place] [address] UA Completeon 02-10-2017 UA Blood 3+ Normal Negative [facility] Comment on above: Performed By: #### 8 [id number] ####PAULA Urinalysis Automated [address] [place] [address] UA Bacteria Trace Abnormal None [facility] Comment on above: Performed By: #### 8 [id number] ####PAULA Urinalysis Automated [address] [place] [address] UA Clarity Clear Normal Clear [facility] Comment on above: Performed By: #### 8 [id number] ####PAULA Urinalysis Automated [address] [place] [address] UA Leuk Est 2+ Abnormal Negative [facility] Comment on above: Performed By: #### 8 [id number] ####PAULA Urinalysis Automated [address] [place] [address] UA Mucous Trace Abnormal Trace [facility] Comment on above: Performed By: #### 8 [id number] ####PAULA Urinalysis Automated [address] [place] [address] UA Nitrite Negative Normal Negative [facility] Comment on above: Performed By: #### 8 [id number] ####PAULA Urinalysis Automated [address] [place] [address] UA pH 7.0 Normal 4.6-8.0 [facility] Comment on above: Performed By: #### 8 [id number] ####PAULA Urinalysis Automated [address] [place] [id number] UA Protein Negative Normal Negative [facility] Comment on above: Performed By: #### 8 [id number] ####PAULA Urinalysis Automated [address] [place] [address] UA Renal Epi 0-2 Normal 0-2 [facility] Comment on above: Performed By: #### 8 [id number] ####PAULA Urinalysis Automated [address] [place] [address] UA Spec Grav 1.001 Low 1.003-1.030 [facility] Comment on above: Performed By: #### 8 [id number] ####PAULA Urinalysis Automated [address] [place] [address] UA Squam Epithelial 0-5 Normal 0-5 [facility] Comment on above: Performed By: #### 8 [id number] ####PAULA Urinalysis Automated [address] [place] [address] UA Urobilinogen Negative Normal [facility] Comment on above: Performed By: #### 8 [id number] ####PAULA Urinalysis Automated [address] [place] [address] UA WBC >50 Abnormal 0-5 [facility] Comment on above: Performed By: #### 8 [id number] ####PAULA Urinalysis Automated [address] [place] [address] Urine, color Straw Normal Yellow [facility] Comment on above: Performed By: #### 8 [id number] ####PAULA Urinalysis Automated [address] [place] [address] Urine, erythrocytes 0-3 Normal 0-3 [facility] Comment on above: Performed By: #### 8 [id number] ####PAULA Urinalysis Automated [address] [place] [address] Urine, glucose Negative Normal Negative [facility] Comment on above: Performed By: #### 8 [id number] ####PAULA Urinalysis Automated [address] [place] [address] Urine, ketones presence Negative Normal Negative [facility] Comment on above: Performed By: #### 8 [id number] ####PAULA Urinalysis Automated [address] [place] [address] Urine, urobilinogen Negative Normal Negative [facility] Comment on above: Performed By: #### 8 [id number] ####PAULA Urinalysis Automated [address] [place] [address] Encounters Encounter Date Encounter Type Care Provider Facility Start: 02-12-2024 End: 02-12-2024 ambulatory Nataliialynda Chavezlay Facility:[facility] Start: 02-08-2024 Encounter for genera l adult medical examination without abnormal findings Nataliia Saxena [facility] Start: 01-23-2024 End: 01-23-2024 ambulatory Nataliia Chavezlay [place] Start: 01-17-2024 End: 01-17-2024 ambulatory [facility] Facility:[facility] Start: 07-06-2021 End: 07-06-2021 Patient encounter procedure [facility] Start: 02-10-2017 End: 02-10-2017 Emergency department patient visit [facility] Facility:[facility] Procedures Date Procedure Procedure Detail Performing Clinician Start: 07-06-2021 Screening mammography Payers Date Payer Category Payer Self-pay [id number] 2020 Unknown [id number] 2017 Unknown Unknown [employer] INSURANCE [id number] Unknown [id number] [id number] [id number] Unknown [id number] Unknown [id number] [id number] [id number] Social History Date Type Detail Facility Tobacco smoking stat [facility] Unknown if ever smoked [facility] Work Phone: Start: 1980 Sex Assigned At Female [facility] Work Phone: Evaluation note Note Date & Type Note Facility Evaluation note No assessment information availa ble [facility] Work Phone: Summary Purpose Family History No Family History Records FoundNo Family History Records FoundNo Family History Records Found Advance Directives No Advanced Directives Records FoundNo Advanced Directives Records FoundNo Advanced Directives Records Found Chief Complaint and Reason for Visit Chief Complaint SCREENING Additional Source Comments INFORMATION SOURCE (unrecogn ized section and content) DATE CREATED AUTHOR 09/25/2017 [facility] DATE CREATED AUTHOR AUTHOR'S ORGANIZ ATION 11/03/2019 [facility] DATE CREATED AUTHOR AUTHOR'S ORGANIZ ATION 03/14/2024 [facility] Goals (unrecognized section and content) Goals may be documented in a n alternate section FOR RECORDS PERTAINING TO PATIENTS WHO ARE OR HAVE BEEN ENROLLED IN A CHEMICAL DEPENDENCY/SUBSTANCEABUSE PROGRAM, SOME INFORMATION MAY BE OMITTED. This clinical summary was aggregated from multiple sources. Caution should be exercised in using it in the provision of clinical care. This summary normalizes information from multiple sources, and as a consequence, information in this document may materially change the coding, format and clinical context of patient data. In addition, data may be omitted in some cases. CLINICAL DECISIONS SHOULD BE BASED ON THE PRIMARY CLINICAL RECORDS. [facility] [employer] provides no warranty or guarantee of the accuracy or completeness of information in this document.
== END | disposition home or self-care (01) ==
LOC: OPBI 16:03
PROVIDERS: PCP Internal Medicine; Referring Provider Internal Medicine; Visit Provider Internal Medicine
DX: Z12.31 Encounter for screening mammogram for malignant neoplasm of breast (principal)
CPT/HCPCS: 77063; 77067

== ENCOUNTER → 2025-03-19 | Outpatient (CLI) | payer OTHER, SELFPAY ==
--- NOTE | 2025-03-19 12:58 | US_ITS ---
PROCEDURE: BREAST LIMITED UNILATERAL 03/19/2025 REASON FOR EXAM: F, Age 44 y/o , ABNORMAL MAMMOGRAM COMPARISON: Prior mammogram done earlier today.. TECHNIQUE: Procedure Code: USBRSTLIMIT Modality: US Procedure: BREAST LIMITED UNILATERAL the upper-outer quadrant of the right breast was examined with ultrasound. FINDINGS: There is a 3 mm x 4 mm x 3 mm cyst at the 11 o'clock position of the breast at 5 cm from the nipple. There is also evidence of a 3 mm x 5 mm x 3 mm cyst at the 10 o'clock position of the breast at 6 cm from the nipple. At the 11 o'clock position of the breast at 5 cm from the nipple. There is also evidence of a 4 mm x 5 mm x 3 mm hypoechoic nodule. Faint vascularity is seen along its periphery. Biopsy recommended. US/Breast Limited Unilateral IMPRESSION: 5 mm x 4 mm x 3 mm hypoechoic nodule at the 11 o'clock position of the breast a t 5 cm from the nipple with peripheral vascularity. Biopsy recommended. BI-RADS 4: SUSPICIOUS RECOMMENDATION: Biopsy Recommended Reading Location: [id number]
--- NOTE | 2025-03-19 13:00 | BI_ITS ---
EXAM: DIAG MAMM W/CAD, UNILAT N/A CLINICAL HISTORY: F, Age 44 y/o , ABNORMAL MAMMOGRAM TECHNIQUE: Procedure Code: [id number] Modality: MG Procedure: DIAG MAMM W/CAD, UNILAT.. Compression spot views as well as 90 degree lateral view of the right breast were obtained. COMPARISON: Prior exam(s) dated March 18, 2025.. FINDINGS: TISSUE DENSITY: The breasts are heterogeneously dense, which may obscure small masses. Persistent nodular density seen in the upper lateral aspect of the right breast. Correlation with ultrasound recommended for further evaluation. Breast Mammographic Findings: BI/DIAG MAMM W/CAD, UNILAT IMPRESSION: Persistent nodular density is seen. Correlation with ultrasound recommended. OVERALL FINAL ASSESSMENT BI-RADS 0: INCOMPLETE - NEED ADDITIONAL IMAGING EVALUATION. RECOMMENDATION: Ultrasound Recommended Additional Recommendation none A letter with findings and recommendations will be mailed to the patient. Reading Location: [id number]
== END | disposition home or self-care (01) ==
PROVIDERS: PCP Internal Medicine; Referring Provider Internal Medicine; Visit Provider Internal Medicine
DX: R92.8 Other abnormal and inconclusive findings on diagnostic imaging of breast (principal)
CPT/HCPCS: 76642; 77061; 77065; G0279